=== PATIENT | female | born 2000 | race Caucasian/White ===

== ENCOUNTER 2020-01-26 16:13 | Emergency (ER) | payer BC ==
[~2020-01-26] VITALS: Ht 175.3 cm; Wt 59.1 kg
[2020-01-26 16:15] VITALS: TEMP 98.3
[2020-01-26] MEDS ORDERED: NORCO 325 MG-51 TAB PO (18:12)
[2020-01-26 18:30] VITALS: BP 126/86; PULSE 80
== END 2020-01-26 18:30 | disposition home or self-care (01) ==
LOC: COL.ER 16:13 → EDBD 16:14 → COL.ER 18:30
DX: S82.851A Displaced trimalleolar fracture of right lower leg, initial encounter for closed fracture (principal); E10.9 Type 1 diabetes mellitus without complications; F32.9 Major depressive disorder, single episode, unspecified; W09.8XXA Fall on or from other playground equipment, initial encounter; Y93.51 Activity, roller skating (inline) and skateboarding
CPT/HCPCS: J2405; J2704; J3010; J7030; Q4041

== ENCOUNTER → 2020-02-05 | Outpatient (CLI) | payer BC ==
[~2020-02-05] MED LIST: NORCO 325 MG-51 TAB PO
== END ==
LOC: COL.VAS 10:57
DX: Z13.6 Encounter for screening for cardiovascular disorders (principal); M79.89 Other specified soft tissue disorders

== ENCOUNTER 2021-07-14 10:51 | Emergency (ER) | payer BC ==
[~2021-07-14] VITALS: Ht 175.3 cm; Wt 70.5 kg
[2021-07-14 11:14] VITALS: TEMP 99.1
[2021-07-14 11:51] LABS: BASO % 0.5 % (0.0-2.0); EOS % 0.5 % (0-4.0); GRAN # 5.7 K/mm3 (1.4-6.5); GRAN % 72.8 % (42.2-75.2); HEMATOCRIT 42.9 % (37.0-47.0); HEMOGLOBIN 14.7 g/dl (12.5-16.0); LYMPH # 1.7 K/mm3 (1.2-3.4); LYMPH % 21.4 % (20.0-51.0); MEAN CELL VOLUME 86 fl (80.0-100.0); MEAN CORPUSCULAR HEMOGLOBIN 30 pg (27.0-31.0); MEAN CORPUSCULAR HGB CONC 34 g/dl (33.0-37.0); MEAN PLATELET VOLUME 9.7 fl (7.4-10.4); MONO # 0.4 K/mm3 (0.1-0.6); MONO % 4.5 % (1.7-9.3); PLATELET COUNT 329 K/mm3 (130-400); RED BLOOD COUNT 4.97 M/mm3 (4.10-5.30); REDCELL DISTRIBUTION WIDTH-CV 11.6 % (11.5-14.5)
[2021-07-14 11:52] LABS: INR 1.1 (0.8-3.0); PROTHROMBIN TIME 12.6 SECONDS (9.7-12.8)
[2021-07-14 11:54] LABS: PARTIAL THROMBOPLASTIN TIME 36.2 SECONDS (26.0-37.0)
[2021-07-14 12:46] LABS: TOTAL PROTEIN 8.1 gm/dL (6.2-8.1)
[2021-07-14 12:48] LABS: TROPONIN-I 0.025 ng/mL (0.00-0.033)
[2021-07-14 13:12] LABS: ALBUMIN 4.2 gm/dL (3.5-5.0); BILIRUBIN,TOTAL 0.9 mg/dL (0.2-1.2); CALCIUM 9.9 mg/dL (8.4-10.2); CREATININE, serum 0.84 mg/dL (0.57-1.11); POTASSIUM 3.7 mmol/L (3.5-4.5)
[2021-07-14 13:15] LABS: COLLECTION METHOD CLEAN CATCH
[2021-07-14] MEDS ORDERED: XANAX 1MG1 MG PO (13:16)
[2021-07-14 13:21] LABS: PH 8 (5-8); SQUAMOUS EPITHELIAL 0-2 /hpf; URINE APPEARANCE Clear; URINE BACTERIA None Seen /hpf; URINE BILIRUBIN Negative (NEGATIVE); URINE BLOOD Negative (NEGATIVE); URINE COLOR Straw; URINE GLUCOSE Negative (NEGATIVE); URINE KETONE Negative (NEGATIVE); URINE LEUKOCYTE ESTERASE Negative (NEGATIVE); URINE NITRATE Negative (NEGATIVE); URINE PROTEIN(semi-quant) Negative (NEGATIVE); URINE RBC 0-2 /hpf; URINE UROBILINOGEN Negative (NEGATIVE)
[2021-07-14 13:29] VITALS: BP 121/85; PULSE 88
== END 2021-07-14 13:46 | disposition home or self-care (01) ==
LOC: COL.ER 10:51
PROVIDERS: Family Medicine
DX: F41.0 Panic disorder [episodic paroxysmal anxiety] (principal); E10.9 Type 1 diabetes mellitus without complications
CPT/HCPCS: J7030

== ENCOUNTER → 2021-10-06 | Outpatient (CLI) | payer BC ==
[~2021-10-06] MED LIST changes: +XANAX 1MG1 MG PO
== END ==
LOC: COL.RAD 11:58
DX: R10.2 Pelvic and perineal pain (principal)